=== PATIENT | female | born 1975 | race Caucasian/White ===

== ENCOUNTER 2018-01-22 07:45 | Inpatient (IN) | payer OTHER, SELFPAY ==
[2018-01-21 16:29] LABS: Hematocrit 38.2 % (37-47); Hemoglobin 12.9 g/dl (12.0-15.0); Mean Corp Hgb Conc 33.8 g/gl (32-36); Mean Corpuscular Hgb 29.4 pg (27.0-32.0); Mean Platelet Vol. 10.2 fl (6.2-12.0); Platelet Count 262 K/mm3 (150-450); RBC Distribution Width CV 13.1 % (11.6-14.6); RBC Distribution Width SD 42.1 fl (35.1-43.9); Red Blood Count 4.39 M/mm3 (4.2-5.4); White Blood Count 17.3 K/mm3 (4.4-11.0)
[2018-01-21 16:32] VITALS: BMI 38.7
[2018-01-21 16:36] LABS: Scan Indicated on CBC? Y/N NO
[2018-01-21 16:38] LABS: Prothrombin Time (Protime)PT. 13.2 SECONDS (11.7-14.9)
[2018-01-21 16:39] LABS: Partial Thromboplast Time 30.7 Seconds (24.1-36.2)
[2018-01-21 16:40] LABS: AST(SGOT) 13 U/L (15-37); Alanine Aminotransfer ALT/SGPT 15 U/L (13-56); Creatinine, Serum 0.59 mg/dL (0.55-1.02); EST Glomerular Filtration Rate 119 mL/min (>60); Est Glom Filt Rate - Afr Amer 144 mL/min (>60); Estimated Creatinine Clearance 127.86 ml/min; Uric Acid 6.1 mg/dL (2.6-6.0)
[2018-01-21 16:45] LABS: Creatinine, Urine (random) < 13.00 mg/dL (NO RANGE EST.); Protein, Urine (Random) < 6.0 mg/dL (<11.9)
[2018-01-21 20:29] LABS: Hemoglobin A1c 5.2 % (4.2-6.3)
[2018-01-21 21:02] VITALS: O2SAT 96
[2018-01-22 06:34] LABS: Hematocrit 36.8 % (37-47); Hemoglobin 12.6 g/dl (12.0-15.0); Mean Corp Hgb Conc 34.2 g/gl (32-36); Mean Corpuscular Hgb 29.9 pg (27.0-32.0); Mean Corpuscular Volume 87.2 fL (81-99); Mean Platelet Vol. 10.4 fl (6.2-12.0); Platelet Count 262 K/mm3 (150-450); RBC Distribution Width CV 13.1 % (11.6-14.6); RBC Distribution Width SD 40.4 fl (35.1-43.9); Red Blood Count 4.22 M/mm3 (4.2-5.4); White Blood Count 15.4 K/mm3 (4.4-11.0)
[2018-01-22 06:35] LABS: Scan Indicated on CBC? Y/N NO
--- NOTE | 2018-01-22 06:37 | PCM.HP.OB ---
- Problem List (1) Preeclampsia Status: Acute (2) Advanced maternal age (AMA) in Status: Acute History Date of Admission: 01/22/18 Final DOC: 01/28/18 Gestational age: 39 Weeks 0 Days History of this : This is a 42 year-old, , at 39 weeks gestational age with headache and elevated blood pressures. She has received care from a lay brother in the community and has had an uncomplicated until the last few weeks where she has developed elevated blood pressures. Her lay brother was trying to treat these naturally and was unsuccessful in bringing them down and therefore the nike athlete recommended her for evaluation today. Blood pressures are 140s-160 over 80s-90s. She initially had a headache but this spontaneously resolved. Initial blood work showed an elevated uric acid. Urine was negative for significant protein. Surgical History: Surgical History (Last Updated 01/22/18 @ 06:50 by Laura Dahl MD) Previous back surgery Z98.890 x 3 Allergies erythromycin base Allergy (Unverified 01/21/18 16:28) Other azithromycin Adverse Reaction (Verified 02/11/15 12:00) Unknown morphine Adverse Reaction (Verified 02/11/15 12:00) Itching Home Medications: Home Medications Fluoxetine [Prozac] 10 mg PO DAILY 01/21/18 Levothyroxine Sodium [Synthroid] 250 mcg PO DAILY 01/21/18 Vits [Prenatabs FA] 1 tablet PO DAILY 01/21/18 Smoking Status: Never smoker Alcohol: None Number of Fetus(es): 1 Heart Tracins moderate variability reactive no decels cat I TOCO Analysis: irregular History Past Pregnancies: Past Pregnancies first IOL GHTN and , bad tearing no fourth degree second hospital uncomplicated 3 term home births uncomplicated Labs: patient didn't have drawn in Expected Delivery Method: Spontaneous Vaginal Review of Systems Constitutional: Denies: Fever, Malaise Eyes: Denies: Blurred vision, Vision Change HEENT: Reports: Head Aches. Denies: Visual Changes Cardiovascular: Denies: Chest Pain, Palpitations Respiratory: Denies: Cough, Shortness of Breath, Wheezing Gastrointestinal: Denies: Abdominal Pain, Diarrhea, Nausea, Vomiting Genitourinary: Denies: Dysuria, Hematuria Gynecological: Denies: Vaginal bleeding, Vaginal discharge Musculoskeletal: Denies: Joint Pain, Muscle pain Skin: Denies: Lesions, Rash Neurological: Denies: Blurred vision, Focal weakness, Headaches Psychiatric: Reports: Anxiety. Denies: Depression Endocrine: Denies: Heat/ Cold Intolerance Hematologic/ Lymphatic: Denies: Easy Bruising, Easy Bleeding Physical Exam Vitals: Vital Signs Pulse Ox 96 01/21/18 21:02 General: Alert, Cooperative, No apparent distress HEENT: Atraumatic, Normocephalic. Negative for: Thyromegaly, Lymphadenopathy Lungs: Normal air movement Abdomen: Soft, Non Tender, Gravid Neurological: Deep Tendon Reflexes 2+/4 and Symmetrical, Neuro grossly intact. Negative for: Clonus DIRECTOR ECONOMIC: Normal external genitalia. Negative for: Vulvar lesions Estimated gestational size: Appropriate for gestational size Presentation: Cephalic Cervix Dilation (cm): 1 Station: -3 Effacement (%): 10 Assessment/Plan All Active Problems Preeclampsia (Acute) Advanced maternal age (AMA) in (Acute) This is a 42 year-old, at 39 weeks gestational age presents with elevated blood pressures and elevated uric acid. preeclampsia with mild features. I recommend delivery since she is after 37 weeks with elevated blood pressures and elevated uric acid. I discuss the recommendation of Cytotec induction with or without magnesium sulfate depending on the blood pressures. At this time the patient and her are refusing induction of labor. I discussed with the patient and her and the nike athlete via phone for over an hour and a half discussing the risks of stroke, seizure, abruption, and maternal or loss secondary to expectant management of preeclampsia. After counseling the patient and providing education and support to the family they are requesting to be monitored overnight to follow blood pressures in the absence of induction. While this is against my medical advice I want to keep the patient and her baby as safe as possible within the confines of her being compliant to my recommendations and therefore I agreed to admit her overnight. Repeat labs in the morning
--- NOTE | 2018-01-22 06:43 | HP.PCM_ITS ---
- Problem List (1) Preeclampsia Status: Acute (2) Advanced maternal age (AMA) in Status: Acute History Date of Admission: 01/22/18 Final DOC: 01/28/18 Gestational age: 39 Weeks 0 Days History of this : This is a 42 year-old, , at 39 weeks gestational age with headache and elevated blood pressures. She has received care from a form layer in the community and has had an uncomplicated until the last few weeks where she has developed elevated blood pressures. Her form layer was trying to treat these naturally and was unsuccessful in bringing them down and therefore the volunteer services director recommended her for evaluation today. Blood pressures are 140s-160 over 80s-90s. She initially had a headache but this spontaneously resolved. Initial blood work showed an elevated uric acid. Urine was negative for significant protein. Surgical History: Surgical History (Last Updated 01/22/18 @ 06:50 by Laura Dahl MD) Previous back surgery Z98.890 x 3 Allergies erythromycin base Allergy (Unverified 01/21/18 16:28) Other azithromycin Adverse Reaction (Verified 02/11/15 12:00) Unknown morphine Adverse Reaction (Verified 02/11/15 12:00) Itching Home Medications: Home Medications Fluoxetine [Prozac] 10 mg PO DAILY 01/21/18 Levothyroxine Sodium [Synthroid] 250 mcg PO DAILY 01/21/18 Vits [Prenatabs FA] 1 tablet PO DAILY 01/21/18 Smoking Status: Never smoker Alcohol: None Number of Fetus(es): 1 Heart Tracins moderate variability reactive no decels cat I TOCO Analysis: irregular History Past Pregnancies: Past Pregnancies first IOL GHTN and , bad tearing no fourth degree second hospital uncomplicated 3 term home births uncomplicated Labs: patient didn't have drawn in Expected Delivery Method: Spontaneous Vaginal Review of Systems Constitutional: Denies: Fever, Malaise Eyes: Denies: Blurred vision, Vision Change HEENT: Reports: Head Aches. Denies: Visual Changes Cardiovascular: Denies: Chest Pain, Palpitations Respiratory: Denies: Cough, Shortness of Breath, Wheezing Gastrointestinal: Denies: Abdominal Pain, Diarrhea, Nausea, Vomiting Genitourinary: Denies: Dysuria, Hematuria Gynecological: Denies: Vaginal bleeding, Vaginal discharge Musculoskeletal: Denies: Joint Pain, Muscle pain Skin: Denies: Lesions, Rash Neurological: Denies: Blurred vision, Focal weakness, Headaches Psychiatric: Reports: Anxiety. Denies: Depression Endocrine: Denies: Heat/ Cold Intolerance Hematologic/ Lymphatic: Denies: Easy Bruising, Easy Bleeding Physical Exam Vitals: Vital Signs Pulse Ox 96 01/21/18 21:02 General: Alert, Cooperative, No apparent distress HEENT: Atraumatic, Normocephalic. Negative for: Thyromegaly, Lymphadenopathy Lungs: Normal air movement Abdomen: Soft, Non Tender, Gravid Neurological: Deep Tendon Reflexes 2+/4 and Symmetrical, Neuro grossly intact. Negative for: Clonus FERRYBOAT PILOT: Normal external genitalia. Negative for: Vulvar lesions Estimated gestational size: Appropriate for gestational size Presentation: Cephalic Cervix Dilation (cm): 1 Station: -3 Effacement (%): 10 Assessment/Plan All Active Problems Preeclampsia (Acute) Advanced maternal age (AMA) in (Acute) This is a 42 year-old, at 39 weeks gestational age presents with elevated blood pressures and elevated uric acid. preeclampsia with mild features. I recommend delivery since she is after 37 weeks with elevated blood pressures and elevated uric acid. I discuss the recommendation of Cytotec induction with or without magnesium sulfate depending on the blood pressures. At this time the patient and her are refusing induction of labor. I discussed with the patient and her and the volunteer services director via phone for over an hour and a half discussing the risks of stroke, seizure, abruption, and maternal or loss secondary to expectant management of preeclampsia. After counseling the patient and providing education and support to the family they are requesting to be monitored overnight to follow blood pressures in the absence of induction. While this is against my medical advice I want to keep the patient and her baby as safe as possible within the confines of her being compliant to my recommendations and therefore I agreed to admit her overnight. Repeat labs in the morning
[2018-01-22 06:45] LABS: Protein, Urine (Random) 6.4 mg/dL (<11.9); Protein:Creat Ratio 144 mg/g CRE (0-200)
[2018-01-22 06:55] LABS: AST(SGOT) 14 U/L (15-37); Alanine Aminotransfer ALT/SGPT 12 U/L (13-56); Creatinine, Serum 0.62 mg/dL (0.55-1.02); EST Glomerular Filtration Rate 114 mL/min (>60); Est Glom Filt Rate - Afr Amer 138 mL/min (>60); Estimated Creatinine Clearance 121.67 ml/min; Uric Acid 6.2 mg/dL (2.6-6.0)
[2018-01-22 07:03] LABS: Prothrombin Time (Protime)PT. 13.5 SECONDS (11.7-14.9)
[2018-01-22 07:04] LABS: Partial Thromboplast Time 30.4 Seconds (24.1-36.2)
[2018-01-22] MEDS: miSOPROStol 25 MCG TABLET VAGINAL ×4 (09:51→22:22)
[2018-01-22 11:28] LABS: Chlamydia Trachomatis by PCR Negative (Negative); Neisserai gonorrhoeae by PCR Negative (Negative); Probe Check PASS; Sample Adequacy Control PASS; Specimen Processing Control PASS
[2018-01-22 12:15] LABS: Group B Strep DNA By PCR POSITIVE (Negative); Probe Check PASS
[2018-01-22] MEDS: 0.9% Saline Lock 10 ML Syringe IV (18:03)
--- NOTE | 2018-01-22 22:21 | PN_ITS ---
Progress Note labs stable this am and patient amenable to IOL. bps normal to mildly elevated - started on cytotec, making change appropriately. category I tracing with no decels. gbs positive will start PCN IAL. reassuring maternal and status
[2018-01-23] MEDS: Lactated Ringers 1,000 ML 50 ML IV (03:09)
--- NOTE | 2018-01-23 05:35 | PCM.PN.BLA ---
Progress Note s/4 4 doses of cytotec- pateint made progress to 3 cm. plan 2-3 hours of expectant mangement and then pitocin PRN for IOL. bps normal to mildly elevated and patient is asymptomatic. reassuring FHT category I tracing.
[2018-01-23] MEDS: 0.9% Saline Lock 10 ML Syringe IV (07:32)
[2018-01-23] MEDS: Oxytocin 30 units/NS 500 ml 30 UNITS/500 ML IV.SOLN IV (12:55)
[2018-01-23] MEDS: Oxytocin 30 units/NS 500 ml 30 UNITS/500 ML IV.SOLN 334 UNITS IV (20:40)
--- NOTE | 2018-01-23 21:02 | PCM.OB.VAG ---
- Problem List (1) Preeclampsia Status: Acute (2) Advanced maternal age (AMA) in Status: Acute Vaginal Delivery Maternal Presentation: Medically Indicated Induction Induction of labor secondary to elevated blood pressures and elevated uric acid suspected preeclampsia. Method of Induction: Pitocin, Cytotec Medical Reason for Induction: Preeclampsia, eclampsia Amniotic Fluid Description: Clear Final DOC: 01/28/18 Gestational age: 39 Weeks and 2 Days Date of Procedure: 01/23/18 Pre-Operative Diagnosis: Induction of labor preeclampsia Post-Operative Diagnosis: Same Surgery/ Procedure Performed: Spontaneous Vaginal Delivery Type of Anesthesia: None Description of Procedure: Patient was found to be 6-7 cm and then stood up for a position change and made quick change and delivered in the standing position the head was delivered atraumatically followed by the anterior and posterior shoulders and nuchal cord ?1 was noted and the infant delivered through the nuchal cord and the patient climbed back into bed and the was placed on the maternal chest. Delayed cord clamping until the placenta delivered was employed in the cord stripped and then clamped and cut. Placenta delivered spontaneously immediately following and there were no lacerations noted. EBL was 200 cc. Placenta was noted to be extremely small for gestational age Presentation: [place] Placental Delivery Description: Spontaneous Placenta Disposition: [facility] Cord Vessel Description: 3 Vessels Nuchal Cord Compression: Without compression Cord Entanglement: Around neck x 1, loose Estimated Blood Loss: 200 Infant A gender: Male Episiotomy Description: None Laceration: None Medications given after delivery: IV Pitocin Complications: None
[2018-01-23] MEDS: Oxytocin 30 units/NS 500 ml 30 UNITS/500 ML IV.SOLN 167 UNITS IV (21:10)
[2018-01-24] MEDS: Ketorolac 10 MG Tablet PO ×4 (00:03→20:58)
[2018-01-24 01:45] VITALS: BP 121/69; PULSE 103; RESP 18; TEMP 36.1
[2018-01-24 06:00] VITALS: BP 145/86; PULSE 102; RESP 18; TEMP 36.3
[2018-01-24 08:10] VITALS: BP 127/67; PULSE 80; RESP 16; TEMP 36.3; O2SAT 98
[2018-01-24 08:48] LABS: Rubella IgG 46.4 IU/mL
[2018-01-24 09:16] LABS: HIV - WCH Non-Reactive (Nonreactive)
[2018-01-24] MEDS: Prenatal Vits Tablet 1 TABLET PO (09:45)
[2018-01-24 11:19] LABS: HEPATITIS B SURFACE AG Negative (Negative); Hep C Antibodies 0.1 s/co ratio (0.0-0.9)
[2018-01-24 13:20] VITALS: BP 132/85; PULSE 84; RESP 16; TEMP 36.8; O2SAT 97
[2018-01-24 17:07] VITALS: BP 117/64; PULSE 84; RESP 16; TEMP 36.4; O2SAT 97
--- NOTE | 2018-01-24 17:08 | NURSING ---
1600 Mom doing well with nursing independently and has requested an electric pump for home use. Spectra S2 pump given per insurance and instructed on it's use. Ck SOOD
[2018-01-24 20:45] VITALS: BP 135/77; PULSE 89; RESP 16; TEMP 36.6
[2018-01-25 02:45] VITALS: BP 133/74; PULSE 98; RESP 16; TEMP 36.4; O2SAT 99
[2018-01-25] MEDS: Ketorolac 10 MG Tablet PO ×2 (02:53→09:24)
[2018-01-25 08:32] VITALS: BP 139/56; PULSE 106; RESP 18; TEMP 36.4; O2SAT 98
[2018-01-25] MEDS: FLUoxetine 10 MG Capsule PO (09:24)
[2018-01-25] MEDS: Prenatal Vits Tablet 1 TABLET PO (09:25)
--- NOTE | 2018-01-25 10:37 | PCM.PN.OB ---
Patient Problems: Active and Suspected Problems Preeclampsia (Acute) Advanced maternal age (AMA) in (Acute) Subjective: late entry patient seen 7:45 yesterday pain controlled no CP SOB - Physical Exam General: Alert, Oriented x3 Vital Signs Temp Pulse Resp BP Pulse Ox 97.5 F L 106 H 18 139/56 H 98 01/25/18 08:32 01/25/18 08:32 01/25/18 08:32 01/25/18 08:32 01/25/18 08:32 Oxygen Delivery Method Room Air Weight: 255 lb Body Mass Index (BMI) 38.7 Intake and Output for Last 24 Hours 01/23/18 01/24/18 01/25/18 23:59 23:59 23:59 Intake Total 2884 / 2884 Output Total 1300 / 1300 Balance 1584 / 1584 Laboratory Tests Past 24 Hrs 01/22/18 09:00 Hep Bs Antigen Negative Hepatitis C Ab (EIA) 0.1 Hepatitis C Comment Not Reportable Medical Necessity - Tobacco Use Smoking Status: Never smoker Assessment/Plan All Active Problems Preeclampsia (Acute) Advanced maternal age (AMA) in (Acute) s/p preeclapmsia routine care [facility]
--- NOTE | 2018-01-25 10:38 | PCM.PN.OB ---
Patient Problems: Active and Suspected Problems Preeclampsia (Acute) Advanced maternal age (AMA) in (Acute) Subjective: doing well no complaints - Physical Exam General: Alert, Oriented x3 Vital Signs Temp Pulse Resp BP Pulse Ox 97.5 F L 106 H 18 139/56 H 98 01/25/18 08:32 01/25/18 08:32 01/25/18 08:32 01/25/18 08:32 01/25/18 08:32 Oxygen Delivery Method Room Air Weight: 255 lb Body Mass Index (BMI) 38.7 Intake and Output for Last 24 Hours 01/23/18 01/24/18 01/25/18 23:59 23:59 23:59 Intake Total 2884 / 2884 Output Total 1300 / 1300 Balance 1584 / 1584 Laboratory Tests Past 24 Hrs 01/22/18 09:00 Hep Bs Antigen Negative Hepatitis C Ab (EIA) 0.1 Hepatitis C Comment Not Reportable Medical Necessity - Tobacco Use Smoking Status: Never smoker Assessment/Plan All Active Problems Preeclampsia (Acute) Advanced maternal age (AMA) in (Acute) s/p preeclampsia normal bps dc home today
--- NOTE | 2018-01-25 10:39 | PCM.DCVAG ---
Discharge Diet: No Restrictions Discharge Activity: Return to Normal Activity, May not drive while taking narcotic pain medications., May Shower May resume sexual activity in: 4-6 weeks Call your doctor if your incision/area has: Continuous Slow Oozing, Sudden Increased Bleeding, Increased Pain/ Swelling, Increased Redness, Foul Smelling Discharge Additional Instructions: If you experience any of the following, contact your healthcare provider. Bleeding that soaks a pad every hour for 2 hours Fever 100.4 or higher Unrelieved incision or abdominal pain Swelling, redness, discharge or bleeding from your incision or episiotomy site Your incision begins to separate Problems urinating (including inability to urinate or burning while urinating). Visual changes Severe headache Flu-like symptoms Pain or redness in one of both of your breasts Pain, warmth, tenderness or swelling in your legs, especially the calf area Frequent nausea and vomiting Symptoms of depression or anxiety If you experience any of the following, call 911 or go to the nearest Emergency Room. Chest pain Problems breathing Seizure activity Partial or complete paralysis of a body part, slurred speech, weakness or drooping of the face, or a sudden inability to walk or hold your balance Allergies/Adverse Reactions: Allergies erythromycin base Allergy (Verified 01/22/18 08:41) Other azithromycin Adverse Reaction (Verified 01/22/18 08:41) Unknown morphine Adverse Reaction (Verified 01/22/18 08:41) Itching Medications to take at Discharge Fluoxetine [Prozac] 10 mg PO DAILY 01/21/18 Levothyroxine Sodium [Synthroid] 250 mcg PO DAILY 01/21/18 Vits [Prenatabs FA] 1 tablet PO DAILY 01/21/18 hydrocortisone-pramoxine 1 %-1 % topical foam 1 applic TOPICAL TID #10 g 01/24/18 Please Follow Up With: Laura Dahl MD - [phone] When: Call to make an appointment with your doctor in 6 weeks. If you had elevated Blood pressure or 4th degree laceration you will need to be seen in 2 weeks. Primary Care Physician: Dhaval Walters DO [Primary Care Provider] - Test Results: Test results from this visit will be discussed in further detail at your follow-up appointment, if applicable.
[2018-01-25 14:07] VITALS: BP 135/82; PULSE 87; RESP 18; TEMP 36.4; O2SAT 98
--- NOTE | 2018-01-25 19:55 | NURSING ---
Charge nurse notified of result of PHQ9 paper. Results indicated a Social Service consult and pt. will be seen before infant is discharged from [facility]. Hotel guest papers given and pt. signed and copy given to pt. Understands rules and did not have further questions at this time.
[2018-01-25 19:56] VITALS: BP 135/72; PULSE 91; RESP 16; TEMP 36.8; O2SAT 98
[2018-01-28 01:01] LABS: Rapid Plasmin Reagin (RPR) NONREACTIVE (NONREACTIVE)
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
== END 2018-01-25 19:00 | disposition home or self-care (01) | DRG 774 ==
LOC: WPOUT 07:56
PROVIDERS: Admitting Provider Obstetrics & Gynecology; Family Provider Student in an Organized Health Care Education/Training Program; PCP Student in an Organized Health Care Education/Training Program; Visit Provider Obstetrics & Gynecology
DX: O14.03 Mild to moderate pre-eclampsia, third trimester (principal); O69.81X0 Labor and delivery complicated by cord around neck, without compression, not applicable or unspecified; O99.824 Streptococcus B carrier state complicating childbirth; Z3A.39 39 weeks gestation of pregnancy; Z37.0 Single live birth
CPT/HCPCS: 59025; 59050; 82565; 82570; 83036; 84156; 84450; 84460; 84550; 85027; 85610; 85730; 86592; 86703; 86762; 86803; 86850; 86900; 87340; 87491; 87591; 87653; 99218; J7120; A4216; G0378

== ENCOUNTER → 2020-04-22 10:17 | Outpatient (CLI) | payer OTHER, SELFPAY ==
[2018-01-21 16:32] VITALS: BMI 38.7
[2020-04-22 10:44] LABS: Absolute Lymphocyte Count 2.29 X10^3/uL (0.83-4.51); Absolute Neutrophil Count 9.7 X10^3/uL (2.0-7.7); Basophil# 0.06 X10^3/uL; Basophil% 0.5 % (0-1); Eosinophil# 0.28 X10^3/uL; Eosinophils% 2.1 % (0-5); Hematocrit 38.2 % (37-47); Hemoglobin 12.8 g/dL (12.0-15.0); Lymphocyte # 2.29 X10^3/ul (4.0); Lymphocyte % 17.5 % (19-41); Mean Corp Hgb Conc 33.5 g/dL (32-36); Mean Corpuscular Hgb 29.5 pg (27.0-32.0); Mean Platelet Vol. 9.3 fl (6.2-12.0); Monocyte# 0.69 X10^3/uL; Monocyte% 5.3 % (0-10); NRBC Flagged by Analyzer 0 % (0-5); Neutrophil # 9.72 X10^3/uL (2.7-7.7); Neutrophil % 74.1 % (47-70); Platelet Count 302 K/mm3 (150-450); RBC Distribution Width CV 13.1 % (11.6-14.6); RBC Distribution Width SD 42.7 fl (35.1-43.9); Red Blood Count 4.34 M/mm3 (4.2-5.4); White Blood Count 13.1 K/mm3 (4.4-11.0)
[2020-04-22 11:19] LABS: ALB/GLOB Ratio 0.9 RATIO (0.9-2.4); AST(SGOT) 19 U/L (15-37); Alanine Aminotransfer ALT/SGPT 28 U/L (13-56); Albumin, Serum 3.7 g/dL (3.2-5.0); Alkaline Phosphatase 25 U/L (45-117); Anion Gap 7 (5-15); BUN 12 mg/dL (7-18); BUN/Creat Ratio 15.5 RATIO (10-20); Calcium,Total 9.4 mg/dL (8.5-10.1); Chloride 106 mmol/L (98-107); Creatinine, Serum 0.77 mg/dL (0.55-1.02); EST Glomerular Filtration Rate 87 mL/min (>60); Est Glom Filt Rate - Afr Amer 105 mL/min (>60); Globulin 4.3 g/dL (2.2-4.2); Glucose 117 mg/dL (74-106); Sodium Level 138 mmol/L (136-145)
[2020-04-22 11:52] LABS: Hepatitis B Surface Antigen Non-Reactive (Nonreactive); Hepatitis C Antibody Non-Reactive (Nonreactive)
[2020-04-22 15:48] LABS: Protein, Urine (Random) 28.3 mg/dL (<11.9); Protein:Creat Ratio 144 mg/g CRE (0-200)
[2020-04-22 16:05] LABS: Amphetamine Urine VISTA NEGATIVE (<1000 ng/mL); Barbiturate Urine VISTA NEGATIVE (< 200 ng/mL); Benzodiazepine Urine VISTA NEGATIVE (< 200 ng/mL); Cocaine Urine VISTA NEGATIVE (< 300 ng/mL); Ecstacy Urine VISTA NEGATIVE (< 500 ng/mL); Methadone Urine VISTA NEGATIVE (< 300 ng/mL); PCP Urine VISTA NEGATIVE (< 25 ng/mL); THC Urine VISTA NEGATIVE (< 50 ng/mL); Vista UDS pH Range 7
[2020-04-25 01:21] LABS: Rapid Plasmin Reagin (RPR) NONREACTIVE (NONREACTIVE)
[2020-04-25 20:07] LABS: Chlamydia By Nucleic Acid AMP Negative (Negative)
[2020-04-25 21:38] LABS: Gonococcus By Nucleic Acid AMP Negative (Negative)
[2020-04-29 04:38] LABS: HPV APTIMA, High Risk Negative (Negative)
== END ==
PROVIDERS: PCP Student in an Organized Health Care Education/Training Program; Referring Provider Obstetrics & Gynecology; Visit Provider Obstetrics & Gynecology
DX: Z34.90 Encounter for supervision of normal pregnancy, unspecified, unspecified trimester (principal)
CPT/HCPCS: 36415; 80053; 80307; 82570; 84144; 84156; 85025; 86592; 86803; 86850; 86900; 86901; 87086; 87088; 87340; 87491; 87591; 87624; 88175; G0145

== ENCOUNTER → 2020-07-04 13:16 | Outpatient (CLI) | payer OTHER, SELFPAY ==
[2020-07-04 11:08] VITALS: BMI 41.2
== END ==
PROVIDERS: PCP Student in an Organized Health Care Education/Training Program; Visit Provider Obstetrics & Gynecology
DX: Z34.90 Encounter for supervision of normal pregnancy, unspecified, unspecified trimester (principal)
CPT/HCPCS: 87086; 87088